=== PATIENT | male | born 1975 | race Caucasian/White ===

== ENCOUNTER 2019-06-09 12:26 | Emergency (ER) | payer SELFPAY ==
--- NOTE | 2019-06-09 13:10 | EDM.PDOC ---
ED HPI GENERAL MEDICAL PROBLEM - General Chief Complaint: Lower Extremity Injury/Pain Stated Complaint: LT FOOT AND ANKLE INJURY Time Seen by Provider: 06/09/19 12:35 Source of Information: Reports: Patient, RN Notes Reviewed History Limitations: Reports: No Limitations - History of Present Illness INITIAL COMMENTS - FREE TEXT/NARRATIVE: Patient is a 44-year-old male who presents to the ED for evaluation of left foot pain. The patient notes that he has a very extensive history of surgeries to the left lower leg. 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 The patient notes that he was evaluated in the [facility] emergency room on 06/08/19 just before midnight, for pain in his left foot. He notes that he was in his arm chair, got up to walk across the room, which was 5 steps, and on the fifth step he noted some immediate pain in his left foot, and he was appreciating some popping and snapping sounds. He did have x-rays done at the [place] [facility], and these did not demonstrate any sort of acute fracture, but he noted that the doctor was having issues due to the extensive scar tissue in his left foot. He appreciates new bruising to his left medial ankle joint, left lateral foot on the dorsum, and a left medial popliteal area bruise. Patient states that he does have a cast implant and an Achilles tendon implant, and that his left lower leg is normally cool to the touch, however he feels this is colder than normal. Patient notes he takes gabapentin, Robaxin, Tylenol / ibuprofen, for chronic pain management. He states that he goes to the ER when the pain is out of control for Toradol injections. He notes that the pain is mostly in his left foot and ankle, and it shoots up to his knee. He further denies any trauma to the area. Of note the patient presented to the ER on crutches. Left Lower Leg Pain Score (Numeric/FACES): 10 - Related Data Allergies Allergy/AdvReac Type Severity Reaction Status Date / Time ampicillin Allergy Vomiting Verified 06/09/19 12:44 prednisone Allergy Agitation Verified 06/09/19 12:44 tramadol Allergy Itching Verified 06/09/19 12:44 Home Meds: Home Meds Gabapentin [Neurontin] 1,200 mg PO TID 06/09/19 [History] Ketorolac [Toradol] 60 mg INJECT ASDIRECTED 06/09/19 [History] Methocarbamol [Robaxin] 500 mg PO QID 06/09/19 [History] cloNIDine [Catapres] 0.1 mg PO BID PRN 06/09/19 [History] Past Medical History Musculoskeletal History: Reports: Other (See Below) Other Musculoskeletal History: club foot surgery bilat; achilles tendon repairs ; L4L5 bulgiing. L1 fused.left hip issues - Past Surgical History HEENT Surgical History: Reports: Myringotomy w Tube(s), Tonsillectomy Musculoskeletal Surgical History: Reports: Arthroscopic Knee Other Musculoskeletal Surgeries/Procedures:: shoulder injections Social & Family History - Tobacco Use Smoking Status *Q: Current Every Day Smoker Years of Tobacco use: 25 Packs/Tins Daily: 1 - Caffeine Use Caffeine Use: Reports: Coffee, Soda - Recreational Drug Use Recreational Drug Use: No Review of Systems - Review of Systems Review Of Systems: See Below Constitutional: Denies: Chills, Fever Ears: Reports: No Symptoms Nose: Reports: No Symptoms Mouth/Throat: Reports: No Symptoms Respiratory: Reports: No Symptoms Cardiovascular: Reports: No Symptoms GI/Abdominal: Reports: No Symptoms Genitourinary: Reports: No Symptoms Musculoskeletal: Reports: Foot Pain (Left foot/ankle). Denies: Joint Pain, Joint Swelling Skin: Reports: No Symptoms, Bruising (see HPI) Neurological: Reports: Pre-Existing Deficit (see HPI) Psychiatric: Reports: No Symptoms ED EXAM, GENERAL - Physical Exam Exam: See Below Exam Limited By: No Limitations General Appearance: Alert, WD/WN, No Apparent Distress Respiratory/Chest: No Respiratory Distress, Lungs Clear, Normal Breath Sounds, No Accessory Muscle Use, Chest Non-Tender Cardiovascular: Normal Peripheral Pulses, Regular Rate, Rhythm, No Murmur Peripheral Pulses: 2+: Dorsalis Pedis (L) (diminished, hard to palpate, but present), 3+: Dorsalis Pedis (R) Extremities: Normal Range of Motion, Slow Capillary Refill (on left foot, he states it is WNL for himself.), Pallor (generalized to LLE below knee) Neurological: Alert, Oriented, Normal Cognition, No Motor/Sensory Deficits Psychiatric: Normal Affect, Normal Mood Skin Exam: Warm, Dry, Intact, Normal Color, No Rash, Cool (This is limited to the left lower extremity mainly, the patient's left lower calf and foot are more close the touch as compared to the right leg. He notes that there is pain in his ankle present, he is able to move it without range of motion, however is having some difficulty doing so due to pain.), Ecchymosis (to left medial popliteal area, to left medial ankle just under the medial malleolus, and left lateral dorsum of foot.), Other (Multiple scars noted to left lower extremity) Course - Vital Signs Last Recorded V/S: Last Vital Signs Temp 97.5 F 06/09/19 12:35 Pulse 104 H 06/09/19 12:35 Resp 20 06/09/19 12:35 BP 135/66 06/09/19 12:35 Pulse Ox 98 06/09/19 12:35 - Orders/Labs/Meds Meds: Medications Discontinued Medications Generic Name Dose Route Start Last Admin Trade Name Freq PRN Reason Stop Dose Admin Ketorolac Tromethamine 60 mg 06/09/19 13:33 06/09/19 13:55 Toradol IM 06/09/19 13:34 60 mg ONETIME ONE Administration Orphenadrine Citrate 100 mg 06/09/19 13:33 06/09/19 13:56 Norflex PO 06/09/19 13:34 100 mg ONETIME ONE Administration - Re-Assessments/Exams Free Text/Narrative Re-Assessment/Exam: 06/09/19 13:45 Patient presents to the ED for evaluation of left foot pain. He notes that he was seen in the [place] [facility] in [facility] in [place] last night for initial pain management. Patient was requesting a shot of Toradol and an orthopedic referral. At this time I was able to obtain his old records from [place], and the doctor was worried that there was some sort of ligamentous or soft tissue and an injury in the ankle with nerve involvement. He was directed to go to the [place] walk-in [facility] clinic, so he came to [place] to do so. After discussion with the patient, I have provided with an outpatient order for MRI, an injection of Toradol and Norflex for pain management, and will have him follow-up with Dr. Tripathi after the MRI has been obtained. 06/09/19 14:16 It was made known to me that the patient was very rude to the nurse when she went to give him Toradol, and that he was roaming the halls asking if she knew "what the fuck was going on". As I was working on his discharge, she told me that he had left the ER, to go outside and have a cigarette and tell his ride not to leave him. And he has not return to the ER, the staff at the admitting desk, have not seen him either. It appears that he may have eloped from the ER. Outpatient MRI was forwarded to the radiology department, they can try to call to schedule him with an appointment. Dr. Tripathi was called and consulted on the patient's case, he believes that the patient might be a little bit out of his scope of practice, and if the patient comes back for the MRI, he will likely refer him to [place] for further management. Departure - Departure Time of Disposition: 13:57 Disposition: Eloped 07 Condition: Fair Clinical Impression: Left foot pain Left ankle pain Qualifiers: Chronicity: acute Qualified Code(s): M25.572 - Pain in left ankle and joints of left foot - Discharge Information *PRESCRIPTION DRUG MONITORING PROGRAM REVIEWED*: Yes *COPY OF PRESCRIPTION DRUG MONITORING REPORT IN PATIENT VALENTINE: No Instructions: Musculoskeletal Pain Referrals: Alan Tripathi MD [Physician] - 2 Weeks (Patient with extensive surgical history of club foot surgeries/talar dome injury or fracture, cadaver achilles and calf implant. Recent ankle pain s/p no fall or trauma. MRI ordered of ankle and foot. Please see note for further detail.) Forms: ED Department Discharge Additional Instructions: You were evaluated in the ER today for your left foot pain. Your pain is suspicious for a ligamentous or soft tissue injury in nature, you were given an injection of Toradol and a muscle relaxer, Norflex for pain management. You were given an outpatient order for MRI of the left ankle and left foot. Please follow up with our Ortho surgeon, Dr. Tripathi after you have completed your MRI for further management. His office number is [phone]. Please return to the ED if your symptoms should change or worsen.
[2019-06-09] MEDS ORDERED: Ketorolac 60 MG/2 ML SDV IM ONE (13:33)
[2019-06-09] MEDS ORDERED: Orphenadrine 100 MG Tab.ER PO ONE (13:33)
== END 2019-06-09 14:20 | disposition left against medical advice (07) ==
LOC: JD.ED 12:26
DX: M79.672 Pain in left foot (principal); M25.572 Pain in left ankle and joints of left foot; F17.210 Nicotine dependence, cigarettes, uncomplicated; Z88.0 Allergy status to penicillin; Z88.8 Allergy status to other drugs, medicaments and biological substances; Z88.5 Allergy status to narcotic agent
CPT/HCPCS: 96372; 99283; A9270; J1885